=== PATIENT | male | born 1940 | race Caucasian/White ===

== ENCOUNTER 2017-03-27 08:09 | Emergency (ER) | payer MEDICARE, OTHER ==
[2017-03-27] MEDS ORDERED: AZTREONAM 1 GM/NS (PMX) 50 ML IVPB (08:18)
[2017-03-27] MEDS ORDERED: PROPOFOL 100 ML IV (08:18)
[2017-03-27] MEDS ORDERED: SOD CHLORIDE 0.9% 1,000 ML IV ×3 (08:18)
[2017-03-27] MEDS ORDERED: SODIUM CHLORIDE 0.9% 500 ML BAG IV* (08:18)
[2017-03-27] MEDS ORDERED: VECURONIUM 100 MG in DEXTROSE 5% 100 ML IV (08:18)
[2017-03-27] MEDS ORDERED: NORepinephrine 8MG/250 ML (PMX 250 ML (08:26)
[2017-03-27] MEDS ORDERED: VECURONIUM 10 MG VIAL IV (08:30)
[2017-03-27] MEDS ORDERED: VANCOMYCIN 1 GM (PMX) 250 ML IVPB (08:30)
[2017-03-27] MEDS ORDERED: NORepinephrine 8MG/250 ML (PMX 250 ML IV (08:37)
[2017-03-27 08:51] LABS: ABNORMAL IP MESSAGE 1; HEMATOCRIT 31.4 % (42.0-52.0); HEMOGLOBIN 9.5 g/dl (14.0-18.0); MEAN CORPUSCULAR HEMOGLOBIN 31.5 pg (29.0-33.0); MEAN CORPUSCULAR HGB CONC 30.3 g/dl (32.0-37.0); MEAN PLATELET VOLUME 10.7 fl (7.4-10.4); NUCLEATED RED BLOOD CELLS% 0.6 /100WBC (0.0-0.0); PLATELET COUNT 158 10^3/UL (140-415); POSITIVE DIFF @See below; RED BLOOD COUNT 3.02 10^6/ul (4.70-6.10)
[2017-03-27 08:51] LABS: WHITE BLOOD COUNT 16.3 10^3/ul (4.8-10.8)
[2017-03-27 08:53] LABS: ADD MAN DIFF? YES
[2017-03-27 09:17] LABS: ALANINE AMINOTRANSFERASE 495 IU/L (13-69); ALBUMIN 3.5 g/dl (3.3-4.9); ALKALINE PHOSPHATASE 172 IU/L (42-121); ANION GAP 29 (8-16); ASPARTATE AMINO TRANSFERASE 721 IU/L (15-46); BLOOD UREA NITROGEN 41 mg/dl (7-20); CALCIUM 9.1 mg/dl (8.4-10.2); CARBON DIOXIDE 15 mmol/L (21-31); CHLORIDE 97 mmol/L (97-110); CREATININE 6.92 mg/dl (0.61-1.24); GLUCOSE 177 mg/dl (70-220); MAGNESIUM 2.4 mg/dl (1.7-2.5); PHOSPHORUS 6.9 mg/dl (2.5-4.9); SODIUM 136 mmol/L (135-144)
[2017-03-27 09:17] LABS: LACTIC ACID 11.5 mmol/L (0.5-2.0)
[2017-03-27 09:29] LABS: TROPONIN-I 0.023 ng/ml (0.00-0.12)
[2017-03-27 10:12] LABS: ANISOCYTOSIS 3+ (0-0); BAND NEUTROPHILS #M 1.3 10^3/ul (0.0-0.6); BAND NEUTROPHILS % (M) 8 % (0-4); BASOPHIL #M 0.1 10^3/ul (0.0-0.0); BASOPHILS % (M) 1 % (0-2); BURR CELLS 1+ (0-0); ERYTHROBLAST% (NRBC) (M) 2 % (0-0); GIANT THROMBO% (M) 3 % (0-0); LYMPHOCYTES #M 3.7 10^3/ul (0.8-2.9); LYMPHOCYTES % (M) 23 % (15-51); MONOCYTE #M 1.6 10^3/ul (0.3-0.9); MONOCYTES % (M) 10 % (0-11); MYELOCYTES #M 0.3 10^3/ul (0.0-0.0); MYELOCYTES % (M) 2 % (0-0); PLATELET ESTIMATE NORMAL; POIKILOCYTOSIS 3+ (0-0); POLYCHROMASIA 1+ (0-0); PROMYELOCYTES #M 0.1 10^3/ul (0-0); PROMYELOCYTES % (M) 1 % (0-0); SEG NEUT #M 9.2 10^3/ul (1.7-7.5); SEGMENTED NEUTROPHILS (M) % 55 % (39-77); SMUDGE%M 7 % (0-0)
== END 2017-03-27 14:00 | disposition expired ==
LOC: E/R 08:09
DX: I46.9 Cardiac arrest, cause unspecified (principal); I12.0 Hypertensive chronic kidney disease with stage 5 chronic kidney disease or end stage renal disease; N18.6 End stage renal disease; E11.22 Type 2 diabetes mellitus with diabetic chronic kidney disease; I25.10 Atherosclerotic heart disease of native coronary artery without angina pectoris; J44.9 Chronic obstructive pulmonary disease, unspecified; Z79.82 Long term (current) use of aspirin; Z99.2 Dependence on renal dialysis
CPT/HCPCS: 31500; 76937; 80053; 83605; 83735; 84100; 84484; 85025; 92950; 93005; 94002; 99291-25